=== PATIENT | female | born 1975 | race Caucasian/White ===

== ENCOUNTER 2017-07-29 12:21 | Emergency (ER) | payer BC, MEDICAID, OTHER ==
[2017-07-29 13:44] VITALS: BP 117/72
--- NOTE | 2017-07-29 13:55 | UC ---
Lower Extremity/Ankle HPI - HPI Summary HPI Summary: pain swelling erythema and purulent drainage around right great toe nail for 7 days--pain and swelling is worsening - History of Current Complaint Chief Complaint: UCLowerExtremity Stated Complaint: RIGHT GREAT TOE INFECTION Time Seen by Provider: 07/29/17 13:40 Hx Obtained From: Patient Hx Last Menstrual Period: 03/31/16 ?: No Onset/Duration: Gradual Onset, Lasting Days - 7, Still Present Severity Initially: Moderate Severity Currently: Moderate Pain Intensity: 7 Pain Scale Used: 0-10 Numeric Aggravating Factor(s): Standing, Ambulation Alleviating Factor(s): Rest, Elevation Able to Bear Weight: Yes - Allergies/Home Medications Allergies/Adverse Reactions: Allergies Allergy/AdvReac Type Severity Reaction Status Date / Time No Known Allergies Allergy Verified 07/29/17 13:44 PMH/Surg Hx/FS Hx/Imm Hx Previously Healthy: No Psychological History: Bipolar Disorder - Surgical History Surgical History: None - Family History Known Family History: Negative: Respiratory Disease - Social History Occupation: Employed Part-time Lives: With Family Alcohol Use: None Substance Use Type: None Smoking Status (MU): Never Smoked Tobacco Review of Systems Constitutional: Negative Skin: Other - paronychia right great toe nail Eyes: Negative ENT: Negative Respiratory: Negative Cardiovascular: Negative Gastrointestinal: Negative Genitourinary: Negative Motor: Negative Neurovascular: Negative Musculoskeletal: Arthralgia - paronychia right great medial toe nail Neurological: Negative Psychological: Negative Is Patient Immunocompromised?: No All Other Systems Reviewed And Are Negative: Yes Physical Exam Triage Information Reviewed: Yes Appearance: Well-Appearing, Well-Nourished, Pain Distress - mild Vital Signs: Initial Vital Signs Temp 98.6 F 07/29/17 13:40 Pulse 65 07/29/17 13:40 Resp 14 07/29/17 13:40 BP 117/72 07/29/17 13:40 Pulse Ox 98 07/29/17 13:40 Vital Signs Reviewed: Yes Eye Exam: Normal Eyes: Positive: Conjunctiva Clear ENT Exam: Normal ENT: Positive: Normal ENT inspection, Hearing grossly normal. Negative: Trismus , Muffled voice, Hoarse voice Dental Exam: Normal Neck exam: Normal Neck: Positive: Supple, Nontender Respiratory Exam: Normal Respiratory: Positive: No respiratory distress, No accessory muscle use Cardiovascular Exam: Normal Cardiovascular: Positive: RRR, Pulses Normal, Brisk Capillary Refill Musculoskeletal Exam: Normal Musculoskeletal: Positive: Strength Intact, ROM Intact, No Edema Neurological Exam: Normal Neurological: Positive: Alert, Muscle Tone Normal Psychological Exam: Normal Skin: Positive: Other - paronychia right great medial toe nail Lower Extremity Course/Dx - Course Course Of Treatment: warm soaks , post op shoe, bactrim follow with pcp or podiatry - Differential Dx/Diagnosis Provider Diagnoses: paronychia right great toe Discharge - Discharge Plan Condition: Stable Disposition: HOME Prescriptions: Sulfamethox/Trimethoprim DS* [Bactrim DS 800/160 TAB*] 1 tab PO BID #20 tab Patient Education Materials: Ibuprofen (By mouth), Paronychia (ED), Warm Compress or Soak (ED) Referrals: Landon Esparza MD [Primary Care Provider] - If Needed (i)
== END 2017-07-29 14:03 | disposition home or self-care (01) ==
LOC: UCCORT 12:21
DX: L03.031 Cellulitis of right toe (principal)
CPT/HCPCS: 99213; G0463

== ENCOUNTER 2017-10-26 13:35 | Emergency (ER) | payer OTHER ==
[2017-10-26 14:17] VITALS: BP 110/63
--- NOTE | 2017-10-26 14:44 | UC ---
Throat Pain/Nasal Abram HPI - HPI Summary HPI Summary: 42 year old female with sore throat. COLD SYMPTOMS, OCCASIONALLY PRODUCTIVE COUGH, OFF AND ON FEVER, SINUS CONGESTION, CHEST CONGESTION, SORE THROAT X1 WEEK. sinus pressure worsening over the past week and has had some headache at times. [ End ] - History of Current Complaint Chief Complaint: UCGeneralIllness Stated Complaint: ST/COUGH Time Seen by Provider: 10/26/17 14:42 Hx Obtained From: Patient Hx Last Menstrual Period: 09/30/17 Onset/Duration: Gradual Onset Pain Intensity: 5 Cough: Productive - Allergies/Home Medications Allergies/Adverse Reactions: Allergies Allergy/AdvReac Type Severity Reaction Status Date / Time No Known Allergies Allergy Verified 07/29/17 13:44 PMH/Surg Hx/FS Hx/Imm Hx Previously Healthy: Yes Psychological History: Bipolar Disorder - Surgical History Surgical History: Yes Surgery Procedure, Year, and Place: WISDOM TEETH REMOVED - Family History Known Family History: Negative: Respiratory Disease - Social History Occupation: Employed Full-time - nurse OB Lives: With Family - 9 kids Alcohol Use: None Substance Use Type: None Smoking Status (MU): Never Smoked Tobacco Review of Systems Constitutional: Fatigue ENT: Sore Throat, Ear Ache, Nasal Discharge, Sinus Congestion, Sinus Pain/ Tenderness Respiratory: Cough Is Patient Immunocompromised?: No All Other Systems Reviewed And Are Negative: Yes Physical Exam Triage Information Reviewed: Yes Appearance: Well-Appearing, No Pain Distress, Well-Nourished Vital Signs: Initial Vital Signs Temp 98.3 F 10/26/17 14:10 Pulse 68 10/26/17 14:10 Resp 17 10/26/17 14:10 BP 110/63 10/26/17 14:10 Pulse Ox 98 10/26/17 14:10 Vital Signs Reviewed: Yes Eye Exam: Normal ENT Exam: Normal ENT: Positive: Nasal congestion, Nasal drainage, Sinus tenderness Dental Exam: Normal Neck exam: Normal Neck: Positive: 1 Respiratory Exam: Normal Cardiovascular Exam: Normal Musculoskeletal Exam: Normal Neurological Exam: Normal Psychological Exam: Normal Skin Exam: Normal Throat Pain/Nasal Course/Dx - Course Course Of Treatment: sinusitis -- treat as viral at this time start flonase and netti pot and if Sx persist then start antibiotics she is aware of SE of meds and will to try to not start them unless warranted - Differential Dx/Diagnosis Differential Diagnosis/HQI/PQRI: Otitis Media, Pharyngitis, Sinusitis, Tonsillitis, URI Provider Diagnoses: sinusitis Discharge - Sign-Out/Discharge Documenting (check all that apply): Discharge/Admit/Transfer - Discharge Plan Condition: Good Disposition: HOME Prescriptions: Amoxicillin/Clavulanate TAB* [Augmentin TAB 875*] 875 mg PO BID 10 Days #20 tab Benzonatate CAP* [Tessalon 100 MG CAP*] 100 mg PO TID #20 cap Patient Education Materials: Sinusitis (ED) Referrals: Landon Esparza MD [Primary Care Provider] - 3 Days Additional Instructions: As we discussed if your symptoms are not improved or worsened in the next 3 days then please at that time start the antibiotics - Billing Disposition and Condition Condition: GOOD Disposition: HOME
== END 2017-10-26 15:01 | disposition home or self-care (01) ==
LOC: UCCORT 13:35
DX: J32.9 Chronic sinusitis, unspecified (principal)
CPT/HCPCS: 87651; 99212; G0463

== ENCOUNTER 2017-11-27 18:02 | Emergency (ER) | payer OTHER ==
[2017-11-27 18:46] VITALS: BP 108/69
[2017-11-27] MEDS ORDERED: Lidocaine 1%* 5 ML VIAL INJ ONE (19:12)
--- NOTE | 2017-11-27 19:12 | UC ---
Hand/Wrist HPI - HPI Summary HPI Summary: Patient reached into her drawer and accidentally caught her left middle finger on a mandolin. She notes that it bled a lot. She denies any foreign body sensation or limited use. Her tetanus shot is up-to-date. occured just [employer]. - History Of Current Complaint Chief Complaint: UCLaceration Stated Complaint: LEFT MIDDLE FINGER LACERATION Time Seen by Provider: 11/27/17 19:05 Hx Obtained From: Patient Hx Last Menstrual Period: 09/30/17 Onset/Duration: Sudden Onset Pain Intensity: 6 Alleviating Factor(s): Nothing Associated Signs And Symptoms: Negative: Swelling, Redness, Weakness, Numbness/ Tingling - Allergies/Home Medications Allergies/Adverse Reactions: Allergies Allergy/AdvReac Type Severity Reaction Status Date / Time No Known Allergies Allergy Verified 11/27/17 18:36 Home Medications: Home Medications Citalopram TAB* [CeleXA TAB*] 40 mg PO DAILY 11/27/17 [History Confirmed ] PMH/Surg Hx/FS Hx/Imm Hx Psychological History: Bipolar Disorder - Surgical History Surgical History: Yes Surgery Procedure, Year, and Place: WISDOM TEETH REMOVED. UPPER TEETH EXTRACTIONS - Family History Known Family History: Negative: Respiratory Disease - Social History Occupation: Employed Part-time Lives: With Family Alcohol Use: None Substance Use Type: None Smoking Status (MU): Never Smoked Tobacco - Immunization History Most Recent Tetanus Shot: 2015 Hx Tetanus, Diphtheria Vaccination: Yes Vaccination Up to Date: Yes Review of Systems Constitutional: Negative Skin: Other - Cut to left middle finger Eyes: Negative ENT: Negative Respiratory: Negative Cardiovascular: Negative Gastrointestinal: Negative Genitourinary: Negative Motor: Negative Neurovascular: Negative Musculoskeletal: Negative Neurological: Negative Psychological: Negative Is Patient Immunocompromised?: No All Other Systems Reviewed And Are Negative: Yes Physical Exam Triage Information Reviewed: Yes Appearance: Well-Appearing Vital Signs: Initial Vital Signs Temp 98.5 F 11/27/17 18:39 Pulse 67 11/27/17 18:39 Resp 16 11/27/17 18:39 BP 108/69 11/27/17 18:39 Pulse Ox 99 11/27/17 18:39 Eyes: Positive: Conjunctiva Clear ENT: Positive: Normal ENT inspection Neck: Positive: Supple Respiratory: Positive: Lungs clear, Normal breath sounds Cardiovascular: Positive: RRR, No Murmur Abdomen Description: Positive: Nontender, No Organomegaly, Soft Bowel Sounds: Positive: Present Musculoskeletal: Positive: ROM Intact Neurological: Positive: Alert Psychological: Positive: Age Appropriate Behavior Skin Exam: Normal, Other - 2.0 cm laceration volar surface right middle finger over the pad. No active bleeding. Digit has full sensorivascular motor function. Rest of the hand is atraumatic. Procedures - Procedure Summary Procedure Summary: Procedure: Timeout done. Site prepped with Betadine. Local with 1% lidocaine 1 mL. Explored and fatty tissue seen but no foreign body or tendon injury. A tiny venous bleeder was appreciated. Site irrigated with copious amounts of sterile sodium chloride. Reprepped with Betadine. Draped in sterile fashion. Closed with 5-0 monofilament and 3 simple stitches. Sterile technique used. Gross vascular motor intact after. Patient tolerated well. Dressing applied by nursing. Hand/Wrist Course/Dx - Differential Dx/Diagnosis Provider Diagnoses: 2.OCM LACERATION l MIDDLE FINGER Discharge - Sign-Out/Discharge Documenting (check all that apply): Discharge/Admit/Transfer - Discharge Plan Condition: Stable Disposition: HOME Patient Education Materials: Care For Your Stitches (DC) Referrals: Landon Esparza MD [Primary Care Provider] - Additional Instructions: [facility]URE [facility]AL. - Billing Disposition and Condition Condition: STABLE Disposition: Home
== END 2017-11-27 19:43 | disposition home or self-care (01) ==
LOC: UCCORT 18:02
DX: S61.213A Laceration without foreign body of left middle finger without damage to nail, initial encounter (principal); W23.0XXA Caught, crushed, jammed, or pinched between moving objects, initial encounter; Y93.89 Activity, other specified; Y92.9 Unspecified place or not applicable; F31.9 Bipolar disorder, unspecified
CPT/HCPCS: 12001; 99211; G0463

== ENCOUNTER 2018-08-08 10:29 | Emergency (ER) | payer OTHER ==
[2018-08-08 10:44] VITALS: BP 120/75
[2018-08-08 11:29] LABS: Influenza A Molecular NEGATIVE (Negative); Influenza B Molecular NEGATIVE (Negative)
--- NOTE | 2018-08-08 11:30 | UC ---
Throat Pain/Nasal Abram HPI - HPI Summary HPI Summary: 43-year-old female presents with complaints of sore throat, hoarseness, and occasional dry nonproductive cough for the past 3 days. States she has had some intermittent URI symptoms for the past 3 weeks although it was symptom free for several days prior to the onset of her current symptoms. States she did has some fever, chills, and body aches previously however has been afebrile for the past 3 days. States her daughter tested positive for flu and strep yesterday. She did not receive her flu shot this year. Denies ear pain, nasal congestion, runny nose, dysphagia, chest pain, shortness of breath, abdominal pain, nausea, vomiting, diarrhea. - History of Current Complaint Chief Complaint: UCGeneralIllness Stated Complaint: FLU SYMPTOMS Time Seen by Provider: 08/08/18 11:08 Hx Obtained From: Patient Hx Last Menstrual Period: 09/30/17 Pain Intensity: 3 - Allergies/Home Medications Allergies/Adverse Reactions: Allergies Allergy/AdvReac Type Severity Reaction Status Date / Time No Known Allergies Allergy Verified 08/08/18 10:38 PMH/Surg Hx/FS Hx/Imm Hx Psychological History: Bipolar Disorder - Surgical History Surgical History: Yes Surgery Procedure, Year, and Place: WISDOM TEETH REMOVED. UPPER TEETH EXTRACTIONS - Family History Known Family History: Positive: Non-Contributory - Social History Occupation: Employed Full-time Lives: With Family Alcohol Use: None Substance Use Type: None Smoking Status (MU): Never Smoked Tobacco - Immunization History Most Recent Tetanus Shot: 2015 Hx Tetanus, Diphtheria Vaccination: Yes Vaccination Up to Date: Yes Review of Systems All Other Systems Reviewed And Are Negative: Yes Constitutional: Negative: Fever, Chills Skin: Negative: Rash Eyes: Negative: Drainage, Eye Redness ENT: Positive: Sore Throat. Negative: Ear Ache, Nasal Discharge, Sinus Congestion, Sinus Pain/Tenderness Respiratory: Positive: Cough. Negative: Shortness Of Breath Cardiovascular: Negative: Palpitations, Chest Pain Gastrointestinal: Negative: Abdominal Pain, Vomiting, Diarrhea, Nausea Genitourinary: Positive: Negative Musculoskeletal: Positive: Negative Neurological: Positive: Negative Is Patient Immunocompromised?: No Physical Exam - Summary Physical Exam Summary: GENERAL APPEARANCE: Well developed, well nourished, alert and cooperative, and appears to be in no acute distress. EYES: Conjunctiva clear. No drainage. Vision is grossly intact. EARS: External auditory canals and tympanic membranes clear, hearing grossly intact. NOSE: No nasal congestion or discharge. THROAT: Pharyngeal erythema. No tonsilar inflammation, swelling, exudate, or lesions. Uvula midline. NECK: Neck supple, non-tender without lymphadenopathy. CARDIAC: Normal S1 and S2. No S3, S4 or murmurs. Rhythm is regular. There is no peripheral edema, cyanosis or pallor. Extremities are warm and well perfused. Capillary refill is less than 2 seconds. Peripheral pulses intact. LUNGS: Clear to auscultation without rales, rhonchi, wheezing or diminished breath sounds. ABDOMEN: Positive bowel sounds. Soft, nondistended, nontender. No guarding or rebound. No masses or hepatosplenomegally. MUSKULOSKELETAL: ROM intact to all extremities. No joint erythema or tenderness. Normal muscular development. Normal gait. SKIN: Skin normal color, texture and turgor with no lesions or eruptions. Triage Information Reviewed: Yes Vital Signs: Initial Vital Signs Temp 98.6 F 08/08/18 10:41 Pulse 93 08/08/18 10:41 Resp 16 08/08/18 10:41 BP 120/75 08/08/18 10:41 Pulse Ox 100 08/08/18 10:41 Vital Signs Reviewed: Yes Throat Pain/Nasal Course/Dx - Course Course Of Treatment: 43-year-old female presents with complaints of sore throat, hoarseness, and occasional dry nonproductive cough for the past 3 days. States she has had some intermittent URI symptoms for the past 3 weeks although it was symptom free for several days prior to the onset of her current symptoms. States she did has some fever, chills, and body aches previously however has been afebrile for the past 3 days. States her daughter tested positive for flu and strep yesterday. She did not receive her flu shot this year. Denies ear pain, nasal congestion, runny nose, dysphagia, chest pain, shortness of breath, abdominal pain, nausea, vomiting, diarrhea. Afebrile. Vital signs stable. Exam reveals an adult female in no acute distress with pharyngeal erythema, no tonsillar swelling or exudate, no cervical lymphadenopathy, clear bilateral breath sounds , dry nonproductive cough, and otherwise unremarkable exam. Rapid flu test and rapid strep test were negative. Recommending symptomatic treatment for a viral pharyngitis. She is to follow-up with her primary care provider in 7 days if symptoms do not improve. Anticipatory guidance and warning symptoms were reviewed with the patient. Verbalizes understanding and agrees with plan of care. - Differential Dx/Diagnosis Differential Diagnosis/HQI/PQRI: Influenza, Mononucleosis, Pharyngitis, Tonsillitis, URI Provider Diagnosis: Viral pharyngitis Discharge - Sign-Out/Discharge Documenting (check all that apply): Patient Departure All imaging exams completed and their final reports reviewed: No Studies - Discharge Plan Condition: Stable Disposition: HOME Patient Education Materials: Pharyngitis (ED) Referrals: Landon Esparza MD [Primary Care Provider] - 7 Days (If no improvement in symptoms.) Additional Instructions: Your rapid strep test and rapid flu test in the clinic today were negative. Your symptoms are likely from a viral infection. Viral infections do not respond to antibiotics and are limited to the treatment of symptoms. Viral infections typically run their course in 7-10 days. Drink plenty of fluids to avoid dehydration especially if you are running any fever. Use salt water gargles several times a day. Take over the counter acetaminophen (Tylenol) or ibuprofen (Advil, Motrin) according to directions as needed for pain or fever. You may also use Chloraseptic spray or Cepacol lonzenges according to directions which contain a numbing medication and can provide some temporary relief from your sore throat. Return here or follow up with your primary care provider in 7 days if symptoms persist. Seek immediate medical attention in the emergency room if you have fever greater than 100.5 F despite taking acetaminophen or ibuprofen, are unable to swallow or develop drooling, are unable to open your mouth fully, are unable to eat or drink, have pain that is not relieved with over the counter pain medication, or have any difficulty breathing. - Billing Disposition and Condition Condition: STABLE Disposition: Home - Attestation Statements Provider Attestation: Per institutional requirements, I have reviewed the chart, however, I was not consulted specifically or made aware of this patient by the midlevel provider. I did not personally evaluate, interact with , or disposition this patient.
== END 2018-08-08 11:47 | disposition home or self-care (01) ==
LOC: UCCORT 10:29
DX: J02.9 Acute pharyngitis, unspecified (principal); F31.9 Bipolar disorder, unspecified
CPT/HCPCS: 87651; 99211; G0463

== ENCOUNTER 2019-03-17 14:05 | Emergency (ER) | payer OTHER ==
--- OUTSIDE RECORDS SUMMARY | 2019-03-17 15:07 | XMS REPORT | Continuity of Care Document ---
:1975 External Reference #:[id number] Author Name Landon Esparza M.D. Address [address] [facility] [address] [place] [address] Problems Active Problems Provider Date Bipolar disorder Landon Esparza M.D. Onset: 12/24/2006 Social History Type Date Description Comments Sex Unknown Tobacco Use Reviewed: 03/04/19 Denies Cigarette Use Smoking Status Reviewed: 03/04/19 Denies Cigarette Use ETOH Use Rare Alcohol Use Recreational Drug Use Denies Drug Use Tobacco Use Start: Unknown Non Smoker Allergies, Adverse Reactions, Alerts Description No Known Drug Allergies Medications Active Medications SIG Qnty Indications Ordering Date Provider Ketoconazole use 3 times a 120ml L21.9 Landon Esparza, 11/01/2018 2% Shampoo week to start, to M.D. involced areas in eyebrows, cheeks, ears; then taper down as directed Escitalopram Oxalate take 1 tablet by 90tabs F31.81 Landon Esparza, 09/20 mouth once daily M.D. 20mg Tablets for mood Nystatin apply to affected 30gm B37.3 Landon Esparza, 09/20/2018 [id number]/GM area(s) in groin M.D. Cream and [id number]/day until clear; resume as needed [place] Carbonate ER take 3 tablets by 540tabs F31.81 Landon Esparza, mouth twice a day M.D. 300mg Tablets ER to stabilize mood Gabapentin take 2 capsules 450caps F31.81 Landon Esparza, 07/06/2015 300mg by mouth every M.D. Capsules morning and 3 capsules every evening for mood/irritability Diclofenac Sodium take 1 tablet by 180tabs Silcoff, Landon, 09/09/2014 75mg mouth twice a day M.DJeff Tablets DR with food for back pain Medications Administered in Office Medication SIG Qnty Indications Ordering Provider Date TB Intradermal Test Rito Liu M.D. 10/23/2015 Injection TB Intradermal Test Unknown 11/07/2011 Injection TB Intradermal Test Landon Esparza M.D. 09/23/2010 Injection TB Intradermal Test Unknown 08/24/2008 Injection TB Intradermal Test Landon Esparza M.D. 09/10/2007 Injection TB Intradermal Test Landon Esparza M.D. 08/30/2004 Injection Immunizations CPT Code Status Date Vaccine Lot # [id number] Given 03/18/2018 Influenza Virus Vaccine, Quadrivalent, Split, [id number] Preservative Free 10341 Given 02/28/2013 Flu, Split Virus 3Yrs 48699 Given 02/24/2011 Flu, Split Virus 3Yrs [id number] 79222 Given 09/23/2010 Adacel or Boostrix, TDaP [id number] 69296 Given 08/30/2004 Td Immunization 21797 Given 03/22/2003 Flu, Split Virus 3Yrs 04615 Given 01/19/1998 Hep B Immunization, Adult 94073 Given 08/19/1997 Hep B Immunization, Adult 19495 Given 07/22/1997 Hep B Immunization, Adult 78347 Given 09/25/1993 Td Immunization 17353 Given 09/25/1993 MMR Virus Immunization 89791 Given 02/25/1979 Oral Poliovirus Immunization 73889 Given 02/25/1979 DTP Immunization 15094 Given 07/26/1978 MMR Virus Immunization 20118 Given 1977 DTP Immunization 10809 Given 1977 Oral Poliovirus Immunization 29001 Given 1977 DTP Immunization 01798 Given 1977 Oral Poliovirus Immunization 70546 Given 1977 DTP Immunization 07477 Given 1977 Oral Poliovirus Immunization [id number] Refused 03/04/2019 Influenza Virus Vaccine, Quadrivalent, Split, Preservative Free Vital Signs Date Vital Result Comment 03/04/2019 5:19pm BP Systolic 118 mmHg BP Diastolic 66 mmHg Weight 225.50 lb 11/01/2018 11:17am BP Systolic 112 mmHg BP Diastolic 66 mmHg Weight 219.00 lb Results Test Date Facility Test Result H/L Range Note Laboratory test 09/20/2018 [facility] Cytology SEE RESULT 1 finding [phone] BELOW Basic Metabolic 09/04/2018 [facility] Sodium 140 mmol/L Normal 135- 145 Panel [phone] Potassium 4.7 mmol/L Normal 3.5-5.0 Chloride 110 mmol/L Normal 101-111 Co2 Carbon Dioxide 26 mmol/L Normal 22-32 Anion Gap 4 mmol/L Normal 2-11 Glucose 97 mg/dL Normal 70-100 Blood Urea Nitrogen 14 mg/dL Normal 6-24 Creatinine 0.73 mg/dL Normal 0.51-0.95 BUN/Creatinine Ratio 19.2 Normal 8-20 Calcium 9.8 mg/dL Normal 8.6-10.3 Egfr Non- 87.9 >60 Egfr 106.3 >60 2 CBC Auto Diff 09/04/2018 [facility] White Blood 8.9 10^3/uL Normal 3.5-10.8 [phone] Count Red Blood Count 4.14 10^6/uL Normal 3.70-4.87 Hemoglobin 11.9 g/dL Low 12.0-16.0 Hematocrit 37 % Normal 33-41 Mean Corpuscular Volume 89 fL Normal 80-97 Mean Corpuscular Hemoglobin 29 pg Normal 27-31 Mean Corpuscular HGB Conc 32 g/dL Normal 31-36 Red Cell Distribution Width 14 % Normal 10.5-15 Platelet Count 350 10^3/uL Normal 150-450 Mean Platelet Volume 7.8 fL Normal 7.4-10.4 Abs Neutrophils 5.2 10^3/uL Normal 1.5-7.7 Abs Lymphocytes 2.7 10^3/uL Normal 1.0-4.8 Abs Monocytes 0.6 10^3/uL Normal 0-0.8 Abs Eosinophils 0.3 10^3/uL Normal 0-0.6 Abs Basophils 0 10^3/uL Normal 0-0.2 Abs Nucleated RBC 0 10^3/uL Granulocyte % 58.6 % Lymphocyte % 30.8 % Monocyte % 6.3 % Eosinophil % 3.8 % Basophil % 0.5 % Nucleated Red Blood Cells % 0.1 Laboratory test 09/04/2018 [facility] [place] 0.90 mmol/L Normal 0.6- 1.2 finding [phone] Liver Function 09/04/2018 [facility] Total Protein 7.1 g/dL Normal 6.4-8.9 Panel [phone] Albumin 4.1 g/dL Normal 3.2-5.2 Globulin 3.0 g/dL Normal 2-4 Albumin/Globulin Ratio 1.4 Normal 1-3 Total Bilirubin 0.50 mg/dL Normal 0.2-1.0 Direct Bilirubin 0.10 mg/dL Normal 0.03-0.18 Indirect Bilirubin 0.4 mg/dL Normal 0.3-1.0 Alkaline Phosphatase 78 U/L Normal 34-104 Alt 11 U/L Normal 7-52 Ast 13 U/L Normal 13-39 1 SEE RESULT BELOW Name: OCTAVIO YUSUF : [address]: Landon Esparza MD Acct: [id number] Unit: [id number] AGE: 43 Location: [facility] Re09/20/18 SEX: F Status: REG REF SPEC: [id number] TOREY: 09/20/18-[address]: Landon Esparza MD REQ: [id number] RECD: 09/20/187221 STATUS: SOUT _ ORDERED: TP IMAGE ANALYS, HPV/Thin Prep COMMENTS: [id number] Negative for Intraepithelial lesion or Malignancy Date Time Test Result Flag (u) Normal Range 09/20/18 1036 @ HPV RNA Negative Negative @ @ The high-risk HPV types detected by the assay include: 16, @ 18, 31, 33, 35, 39, 45, 51, 52, 56, 58, 59, 66, and 68. A. Ectocervical/Endocervical Specimen Adequacy: Satisfactory of evaluation Transformation zone component identified Patient Information: HPV: High risk HPV RNA testing regardless of pap results. Actual Specimen Date: 09/20/18 Last Menstrual Date: 09/05/18 ?: N Post Menopausal?: N Hysterectomy?: N Previous Abnormal Pap Smears?:Y If Yes, enter Diagnosis: 2004 Low grade squamous intraepithelial lesion. Signed by and Reported on: MAVIS Perez (ASCP) 0941 This Pap test was evaluated with the assistance of the iSTAR MedicalPrep Test Imaging System. Due to cytologic findings at the emanations analysis technician microscope, comprehensive manual rescreening by a Dimension Warehouse Supervisor may be required. The Pap Smear is a screening test designed to aid in the detection of premalignant and malignant conditions of the uterine cervix. It is not a diagnostic procedure and should not be used as the sole means of detecting cervical cancer. Both false- positive and false- negative reports do occur. Depending on your risk status, a Pap smear should be obtained and evaluated every 1-3 years. END OF REPORT DEPARTMENT OF PATHOLOGY, [address] [place] [address] Kyle Black M.D. Director [facility] # [id number] 2 Because ethnic data is not always readily available, this report includes an eGFR for both -Americans and non- Americans. The National Kidney Disease Education Program (NKDEP) does not endorse the use of the MDRD equation for patients that are not between the ages of 18 and 70, are , have extremes of body size, muscle mass, or nutritional status, or are non- or non-. According to the National Kidney Foundation, irrespective of diagnosis, the stage of the disease is based on the level of kidney function: Stage Description GFR(mL/min/1.73 m(2)) 1 Kidney damage with normal or decreased GFR 90 2 Kidney damage with mild decrease in GFR 60-89 3 Moderate decrease in GFR 30-59 4 Severe decrease in GFR 15-29 5 Kidney failure <15 (or dialysis) Procedures Description No Information Available Medical Devices Description No Information Available Encounters Type Date Location Provider Dx Diagnosis Office Visit 11/01/2018 Main Office Landon Esparza F31.81 Bipolar II disorder 11:15a MZaida L21.9 Seborrheic dermatitis, unspecified Office Visit 09/20/2018 9:30a Main Office Landon Esparza F31.81 Bipolar II M.D. disorder Z12.4 Encounter for screening for malignant neoplasm of cervix Z12.39 Encounter for oth screening for malignant neoplasm of breast B37.3 Candidiasis of vulva and vagina K64.8 Other hemorrhoids Assessments Date Code Description Provider 03/04/2019 [id number] Bipolar II disorder Landon Esparza M.D. 03/04/2019 L21.9 Seborrheic dermatitis, unspecified Landon Esparza M.D. 03/04/2019 Z23 Encounter for immunization Landon Esparza M.D. 11/01/2018 F31.81 Bipolar II disorder Landon Esparza M.D. 11/01/2018 L21.9 Seborrheic dermatitis, unspecified Landon Esparza M.D. 09/20/2018 F31.81 Bipolar II disorder Landon Esparza M.D. 09/20/2018 Z12.4 Encounter for screening for malignant Landon Esparza M.D. neoplasm of cervix 09/20/2018 Z12.39 Encounter for other screening for malignant Landon Esparza M.D. neoplasm of yassine 09/20/2018 B37.3 Candidiasis of vulva and vagina Landon Esparza M.D. 09/20/2018 K64.8 Other hemorrhoids Landon Esparza M.D. Plan of Treatment 03/04/2019 - Landon Esparza M.D.F31.81 Bipolar II disorderFollow up:RTO 4-6 months. Get bloodwork done soon. No need to fast but it should be drawn in the morning before taking your morning dose of [place].L21.9 Seborrheic dermatitis, unspecifiedComments:Continue ketoconazole. Try hydrocortisone cream as well to areas under eyes, use no more than 5-7 days then stop for at least 5 days before resuming. If not helpful she will let us know and we will go from there.Follow up:As we discussed, for the rash on your cheeks (below eyes), try using OTC hydrocortisone cream 2x/dayfor 5-7 days then stop it for at least 5 days before resuming it. Continue using the ketoconazole shampoo as well. If it doesn't help please let us know.Z23 Encounter for immunizationComments: Encouraged flu vaccine wc was refused. Functional Status Description No Information Available Mental Status Description No Information Available Referrals Description No Information Available
[2019-03-17 15:23] VITALS: BP 111/68
--- NOTE | 2019-03-17 15:39 | UC ---
Throat Pain/Nasal Abram HPI - HPI Summary HPI Summary: 43-year-old female presents with 3 day history of sore throat and loss of voice. States approximately a week and a half ago she had some cold-like symptoms including fever, nasal congestion, runny nose, and a dry nonproductive cough. States continues to have an occasional cough but other symptoms head subsided until 3 days ago she started with the sore throat. Reports low-grade temperature of 99 F. 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 Denies ear pain, nasal congestion, dysphagia, chest pain , shortness of breath, abdominal pain, nausea, or vomiting. - History of Current Complaint Chief Complaint: UCGeneralIllness Stated Complaint: ST,COUGH Time Seen by Provider: 03/17/19 15:36 Hx Obtained From: Patient Hx Last Menstrual Period: 02/25/19 Pain Intensity: 6 - Allergies/Home Medications Allergies/Adverse Reactions: Allergies Allergy/AdvReac Type Severity Reaction Status Date / Time No Known Allergies Allergy Verified 08/08/18 10:38 Home Medications: Home Medications Escitalopram * [Lexapro *] 20 mg PO DAILY 03/17/19 [History Confirmed 03/17/19] Ibuprofen/Pseudoephedrine HCl [Advil Cold & Sinus] 2 tab PO ONCE PRN 03/17/19 [ History Confirmed 03/17/19] PMH/Surg Hx/FS Hx/Imm Hx Psychological History: Bipolar Disorder - Surgical History Surgical History: Yes Surgery Procedure, Year, and Place: WISDOM TEETH REMOVED. UPPER TEETH EXTRACTIONS - Family History Known Family History: Positive: Non-Contributory - Social History Occupation: Employed Full-time Lives: Alone Alcohol Use: None Substance Use Type: None Smoking Status (MU): Never Smoked Tobacco - Immunization History Most Recent Tetanus Shot: 2015 Hx Tetanus, Diphtheria Vaccination: Yes Vaccination Up to Date: Yes Review of Systems All Other Systems Reviewed And Are Negative: Yes Constitutional: Negative: Fever, Chills Skin: Negative: Rash Eyes: Negative: Drainage, Eye Redness ENT: Positive: Sore Throat. Negative: Ear Ache, Nasal Discharge, Sinus Congestion Respiratory: Positive: Cough. Negative: Shortness Of Breath Cardiovascular: Negative: Chest Pain Gastrointestinal: Negative: Abdominal Pain, Vomiting, Nausea Genitourinary: Positive: Negative Musculoskeletal: Positive: Negative Neurological: Positive: Negative Is Patient Immunocompromised?: No Physical Exam - Summary Physical Exam Summary: GENERAL APPEARANCE: Well developed, well nourished, alert and cooperative, and appears to be in no acute distress. EYES: Conjunctiva clear. No drainage. EARS: External auditory canals and tympanic membranes clear, hearing grossly intact. NOSE: No nasal discharge. THROAT: Hoarse voice. Pharyngeal erythema. 2+ tonsils without exudate or lesions. Uvula midline. NECK: Neck supple, non-tender without lymphadenopathy. CARDIAC: Normal S1 and S2. No S3, S4 or murmurs. Rhythm is regular. There is no peripheral edema, cyanosis or pallor. Extremities are warm and well perfused. Capillary refill is less than 2 seconds. Peripheral pulses intact. LUNGS: Clear to auscultation without rales, rhonchi, wheezing or diminished breath sounds. ABDOMEN: Positive bowel sounds. Soft, nondistended, nontender. No guarding or rebound. No masses or hepatosplenomegally. MUSKULOSKELETAL: ROM intact to all extremities. No joint erythema or tenderness. Normal muscular development. Normal gait. SKIN: Skin normal color, texture and turgor with no lesions or eruptions. Triage Information Reviewed: Yes Vital Signs: Initial Vital Signs Temp 99.5 F 03/17/19 15:20 Pulse 72 03/17/19 15:20 Resp 20 03/17/19 15:20 BP 111/68 03/17/19 15:20 Pulse Ox 99 03/17/19 15:20 Vital Signs Reviewed: Yes Throat Pain/Nasal Course/Dx - Course Course Of Treatment: 43-year-old female presents with 3 day history of sore throat and loss of voice. States approximately a week and a half ago she had some cold-like symptoms including fever, nasal congestion, runny nose, and a dry nonproductive cough. States continues to have an occasional cough but other symptoms head subsided until 3 days ago she started with the sore throat. Reports low-grade temperature of 99 F. 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 Denies ear pain, nasal congestion, dysphagia, chest pain , shortness of breath, abdominal pain, nausea, or vomiting. Afebrile. Vital signs stable. Patient had a hoarse voice, pharyngeal erythema with 1+ tonsils without exudate or lesions, no cervical lymphadenopathy, clear bilateral breath sounds, and otherwise unremarkable exam. Discussed with patient that her symptoms are likely viral in origin and recommending symptomatic treatment at this time. She is to follow-up with her primary care provider in 3-5 days if symptoms are not improving. Anticipatory guidance and warning symptoms were reviewed with the patient. Verbalizes understanding and agrees with plan of care. - Differential Dx/Diagnosis Differential Diagnosis/HQI/PQRI: Laryngitis, Mononucleosis, Peritonsillar Abscess, Pharyngitis, Sinusitis, Tonsillitis, URI Provider Diagnosis: Acute viral pharyngitis, Laryngitis Discharge ED - Sign-Out/Discharge Documenting (check all that apply): Patient Departure All imaging exams completed and their final reports reviewed: No Studies - Discharge Plan Condition: Stable Disposition: HOME Patient Education Materials: Pharyngitis (ED), Laryngitis (ED) Referrals: Landon Esparza MD [Primary Care Provider] - 3 Days Additional Instructions: Your rapid strep test in the clinic today was negative. Your symptoms are likely from a viral infection. Viral infections do not respond to antibiotics and are limited to the treatment of symptoms. Viral infections typically run their course in 7-10 days. Drink plenty of fluids to avoid dehydration especially if you are running any fever. Use salt water gargles several times a day. Take over the counter acetaminophen (Tylenol) or ibuprofen (Advil, Motrin) according to directions as needed for pain or fever. You may also use Chloraseptic spray or Cepacol lonzenges according to directions which contain a numbing medication and can provide some temporary relief from your sore throat. Rest your voice as much as possible. Return here or follow up with your primary care provider in 3-5 days if symptoms persist. Seek immediate medical attention in the emergency room if you have fever greater than 100.5 F despite taking acetaminophen or ibuprofen, are unable to swallow or develop drooling, are unable to open your mouth fully, are unable to eat or drink, have pain that is not relieved with over the counter pain medication, or have any difficulty breathing. - Billing Disposition and Condition Condition: STABLE Disposition: Home
== END 2019-03-17 16:35 | disposition home or self-care (01) ==
LOC: UCCORT 14:05
DX: J02.9 Acute pharyngitis, unspecified (principal); J04.0 Acute laryngitis; F31.89 Other bipolar disorder; Z79.899 Other long term (current) drug therapy
CPT/HCPCS: 87651; 99211; G0463